=== PATIENT | male | born 1955 | race Caucasian/White ===

== ENCOUNTER → 2020-04-20 12:35 | Outpatient (CLI) | payer BC, SELFPAY ==
--- NOTE | ~2020-04-20 | CT_ITS ---
EXAMINATION: CT abdomen pelvis wo/w con DATE: 04/20/2020 13:17 INDICATION: Abdominal pain. Hernia. TECHNIQUE: Computed tomography (CT) of the abdomen and pelvis was performed without and subsequently with 100 cc Omnipaque 350 intravenous contrast. Automated exposure control and iterative reconstructi on technique were employed. Exam dose: 725.52 mGy-cm total exam DLP. COMPARISON: None. FINDINGS: There is prominent discoid atelectasis or scarring in the lower lung zones, particularly th e dependent lower lobes. Normal heart size. No pericardial or pleural effusion. 9 mm right hepatic cyst. Smaller left hepatic cyst. No suspicious hepatic or pancreatic, splenic or a drenal or renal mass lesion is noted. The gallbladder is present. No bile duct or pancreatic duct dil atation. Small sliding hiatal hernia. There is a 9 mm right renal calculus in the hilar area, with attenuation 1300 Hounsfield units. There is a pinpoint nonobstructing mid left renal calculus. There is thickening and enhancement of the wall of the right renal pelvis and proximal ureter raising concern for urinary tract infection. There is prostate enlargement and calcification. There is diffuse thickening of the urinary bladder w all. No abdominal aortic aneurysm. No intraperitoneal or retroperitoneal or pelvic mass lesion or adenopat hy or ascites. Diverticulosis of the colon, particularly rectosigmoid area; no CT evidence of ventriculitis. Normal appendix. No bowel obstruction. No intraperitoneal free air. Severe degenerative disc disease at T11-12, L4-5 and L5-S1. IMPRESSION: Bilateral nephrolithiasis There is thickening and enhancement of the right renal pelvis and ureter suggesting right urinary tra ct infection; urinalysis is recommended Hepatic cysts Prostate enlargement and calcification, thickening urinary bladder wall Diverticulosis of the colon Small sliding hiatal hernia Reviewed, dictated and finalized at [facility]. Reviewed, dictated and finalized at [facility] IMPRESSION: Bilateral nephrolithiasis There is thickening and enhancement of the right renal pelvis and ureter sugges ting right urinary tract infection; urinalysis is recommended Hepatic cysts Prostate enlargement and calcification, thickening urinary bladder wall Diverticulosis of the colon Small sliding hiatal hernia
[2020-04-20 13:02] LABS: Estimated Glomerular Filt Rate > 60
== END ==
PROVIDERS: PCP Family Medicine; Visit Provider Family Medicine
DX: R10.9 Unspecified abdominal pain (principal); N20.0 Calculus of kidney; K76.89 Other specified diseases of liver; N40.0 Benign prostatic hyperplasia without lower urinary tract symptoms; K57.90 Diverticulosis of intestine, part unspecified, without perforation or abscess without bleeding; K44.9 Diaphragmatic hernia without obstruction or gangrene
CPT/HCPCS: 36415; 74178; Q9967